=== PATIENT | male | born 2000 | race Caucasian/White ===

== ENCOUNTER 2020-12-18 18:20 | Emergency (ER) | payer SELFPAY ==
[2020-12-18] MEDS ORDERED: NA CHLORIDE 0.9% 1,000 ML ONE ×2 (18:51→18:53)
[2020-12-18] MEDS ORDERED: MULTIVITAMINS 10 ML VIAL (INJ) IV ONE (18:51)
[2020-12-18] MEDS ORDERED: ONDANSETRON 4 MG/2 ML VIAL ONE (18:51)
[2020-12-18 18:52] LABS: Absolute Lymphocytes (CBC) 2.5 K/uL (0.7-4.9); Basophils % 1.1 % (0-1.3); Hematocrit 45.1 % (39.6-49.0); Lymphocytes % 32.6 % (15.3-44.8); MPV 7.7 fL (7.6-11.3); RBC Red Blood Cell Count 4.88 M/uL (4.33-5.43)
[2020-12-18 18:55] LABS: Protime INR 0.91
[2020-12-18 19:14] LABS: ALT/SGPT 23 U/L (12-78); AST/SGOT 22 U/L (15-37); Albumin 4.3 g/dL (3.4-5.0); Alkaline Phosphatase 108 U/L (45-117); BUN Blood Urea Nitrogen 11 mg/dL (7-18); Bicarbonate 24 mmol/L (21-32); Bilirubin Direct 0.1 mg/dL (0-0.2); Bilirubin Total 0.5 mg/dL (0.2-1.0); Glucose Level 90 mg/dL (74-106); Potassium 3.6 mmol/L (3.5-5.1); Protein, Total 7.6 g/dL (6.4-8.2); Sodium Level 145 mmol/L (136-145)
[2020-12-18 19:59] LABS: Urine Blood Negative (Negative); Urine Glucose Negative (Negative); Urine Protein Negative (Negative)
[2020-12-18 20:15] LABS: Barbiturates NEGATIVE (NEGATIVE); Benzodiazepines NEGATIVE (NEGATIVE); Cocaine NEGATIVE (NEGATIVE); METHAMPHETAM NEGATIVE (NEGATIVE); Methadone NEGATIVE (NEGATIVE); Opiates NEGATIVE (NEGATIVE); Phencyclidine NEGATIVE (NEGATIVE); THC Cannibis NEGATIVE (NEGATIVE)
--- NOTE | 2020-12-18 21:33 | ER ---
Nurse's Notes [facility] Name: Surendra Deng Age: 20 yrs Sex: Male : 2000 Arrival Date: 12/18/2020 Time: 18:23 Bed 12 Private MD: Diagnosis: Alcohol abuse with intoxication Presentation: 12/18 18:24 Chief complaint: EMS states: Toned out for possible heat stroke, on scene pt was hb combative, confused, on knees rocking back and forth, reported drinking vodka + redbull and beer all day. Vomiting upon arrival. Coronavirus screen: At this time, the client does not indicate any symptoms associated with coronavirus-19. Ebola Screen: No symptoms or risks identified at this time. Initial Sepsis Screen: Does the patient meet any 2 criteria? No. Patient's initial sepsis screen is negative. Does the patient have a suspected source of infection? No. Patient's initial sepsis screen is negative. Risk Assessment: Do you want to hurt yourself or someone else? Patient reports no desire to harm self or others. Onset of symptoms was December 18, 2020. 18:24 Method Of Arrival: EMS: [facility] 18:24 Acuity: JHONY 2 hb Triage Assessment: 18:26 General: Appears ill, Behavior is restless, uncooperative. Pain: Denies pain. EENT: No hb signs and/or symptoms were reported regarding the EENT system. Neuro: Level of Consciousness is confused, lethargic, Oriented to person. Cardiovascular: Patient's skin is warm and dry. Respiratory: Respiratory effort is even, unlabored, Respiratory pattern is regular, symmetrical. GI: Pt is actively vomiting undigested food. : No signs and/or symptoms were reported regarding the genitourinary system. Derm: Skin is pink, warm \T\ dry. Musculoskeletal: No signs and/or symptoms reported regarding the musculoskeletal system. Historical: - Allergies: 18:26 No Known Allergies; hb - Home Meds: 18:26 None [Active]; hb - PMHx: 18:26 None; hb - PSHx: 18:26 None; hb - Immunization history:: Adult Immunizations up to date. - Social history:: Smoking status: unknown. Screenin:27 Abuse screen: Denies threats or abuse. Denies injuries from another. Nutritional hb screening: No deficits noted. Tuberculosis screening: No symptoms or risk factors identified. Fall Risk None identified. Assessment: 18:27 General: see triage . hb 18:30 Reassessment: assisted patient to bedside commode. BM x1 and voided x1. Pt now in exam ss room with side rails up x2. 19:10 Reassessment: Pt is awake and alert and oriented x4, smells of ETOH, respirations are jb4 even and unlabored with no s/s of pain or distress noted. 20:30 Reassessment: Patient appears in no apparent distress at this time. Patient and/or jb4 family updated on plan of care and expected duration. Pain level reassessed. Patient is alert, oriented x 3, equal unlabored respirations, skin warm/dry/pink. 21:02 Reassessment: Patient appears in no apparent distress at this time. Patient and/or jb4 family updated on plan of care and expected duration. Pain level reassessed. Patient is alert, oriented x 3, equal unlabored respirations, skin warm/dry/pink. Pt is able to ambulate with a steady gait. Moved to bed 12 to finish IV infusion and wait for discharge. 21:59 Reassessment: Patient appears in no apparent distress at this time. Patient and/or jb4 family updated on plan of care and expected duration. Pain level reassessed. Patient is alert, oriented x 3, equal unlabored respirations, skin warm/dry/pink. Pt d/c'ed home with father, left ED with steady gait. Vital Signs: 18:24 BP 133 / 88; Pulse 92; Resp 16; Temp 97.4; Pulse Ox 98% on R/A; Pain 0/10; hb 19:10 Pulse 95; Resp 16; Pulse Ox 100% on R/A; jb4 20:45 BP 127 / 82; Pulse 83; Resp 16; Pulse Ox 97% on R/A; jb4 21:05 BP 127 / 82; Pulse 88; Resp 16; Pulse Ox 96% on R/A; dh4 ED Course: 18:23 Patient arrived in ED. hb 18:25 Triage completed. hb 18:26 Ashleigh Smalls FNP-C is [facility]. kb 18:26 Moe Win MD is Attending Physician. kb 18:26 Arm band placed on. hb 18:27 Sarahy Keller, RN is Primary Nurse. hb 18:27 Patient has correct armband on for positive identification. Bed in low position. Call hb light in reach. Side rails up X2. 18:43 Inserted saline lock: 20 gauge in right antecubital area, using aseptic technique. hb Blood collected. 21:59 No provider procedures requiring assistance completed. IV discontinued, intact, jb4 bleeding controlled, No redness/swelling at site. Pressure dressing applied. Administered Medications: 18:43 Drug: NS 0.9% 1000 ml Route: IV; Rate: 1000 ml; Site: left antecubital; hb 20:00 Follow up: Response: No adverse reaction; IV Status: Completed infusion; IV Intake: jb4 1000ml 18:43 Drug: Banana Bag - (NS 0.9% 1000 ml, foLIC Acid 1 mg, Thiamine 100 mg, Multivitamin 1 hb amp) Route: IV; Rate: calculated rate; Site: left antecubital; 21:55 Follow up: Response: No adverse reaction; IV Status: Completed infusion; IV Intake: jb4 1000ml 18:43 Drug: Zofran (Ondansetron) 4 mg Route: IVP; Site: left antecubital; hb 19:06 Follow up: Response: No adverse reaction hb Intake: 20:00 IV: 1000ml; Total: 1000ml. jb4 21:55 IV: 1000ml; Total: 2000ml. jb4 Outcome: 21:32 Discharge ordered by . kb 21:59 Discharged to home ambulatory. jb4 21:59 Condition: stable 21:59 Discharge instructions given to patient, Instructed on discharge instructions, follow up and referral plans. Demonstrated understanding of instructions, follow-up care. 22:00 Patient left the ED. jb4 Signatures: Ashleigh Smalls, RETAINING ROOM CUTTER-C DEYANIRA-Natalie Marin RN RN Sarahy Keller, RN RN Brent Francisco RN RN jb Dexter Melton Franny
--- NOTE | 2020-12-18 21:33 | EDPHYS ---
Physician Documentation [facility] Name: Surendra Deng Age: 20 yrs Sex: Male : 2000 Arrival Date: 12/18/2020 Time: 18:23 Bed 12 Private MD: ED Physician Moe Win HPI: 12/19 00:15 This 20 yrs old Male presents to ER via EMS with complaints of ETOH Abuse. kb 00:16 The patient presents to the emergency department The patient presents to the emergency kb department alcohol intoxication. Context: Method: the patient has a confirmed or suspected ingestion, of alcohol, Time: just prior to arrival, Extent: moderate ingestion, [place], and was witnessed by family. Associated signs and symptoms: Pertinent positives: nausea, vomiting, Pertinent negatives: anxiety, apnea, auditory hallucinations, burning of skin, decreased level of consciousness, depression, diaphoresis, diarrhea, dizziness, incontinence, loss of consciousness, palpitations, shortness of breath, tearfulness, visual hallucinations. Severity of symptoms: At their worst the symptoms were moderate in the emergency department the symptoms are unchanged. The patient has not experienced similar symptoms in the past. The patient has not recently seen a physician. Pt [place] the [place] and began vomiting. EMS was called and pt brought in. . Historical: - Allergies: 12/18 18:26 No Known Allergies; hb - Home Meds: 18:26 None [Active]; hb - PMHx: 18:26 None; hb - PSHx: 18:26 None; hb - Immunization history:: Adult Immunizations up to date. - Social history:: Smoking status: unknown. ROS: 18:59 Constitutional: Negative for fever, chills, and weight loss. kb 18:59 Abdomen/GI: Positive for nausea and vomiting, Negative for abdominal pain. 18:59 All other systems are negative. Exam: 19:00 Constitutional: This is a well developed, well nourished patient who is awake, alert, kb and in no acute distress. Head/Face: Normocephalic, atraumatic. Eyes: Pupils equal round and reactive to light, extra-ocular motions intact. Lids and lashes normal. Conjunctiva and sclera are non-icteric and not injected. Cornea within normal limits. Periorbital areas with no swelling, redness, or edema. ENT: Moist Mucous membranes Respiratory: Respirations even and unlabored. No increased work of breathing, no retractions or nasal flaring. Abdomen/GI: Soft, non-tender. No distention Skin: Warm, dry with normal turgor. Normal color. MS/ Extremity: Pulses equal, no cyanosis. Neurovascular intact. Full, normal range of motion. 19:08 Constitutional: The patient appears smells of alcohol, ETOH, obviously intoxicated kb 19:36 ECG was reviewed by the Attending Physician. kb Vital Signs: 18:24 BP 133 / 88; Pulse 92; Resp 16; Temp 97.4; Pulse Ox 98% on R/A; Pain 0/10; hb 19:10 Pulse 95; Resp 16; Pulse Ox 100% on R/A; jb4 20:45 BP 127 / 82; Pulse 83; Resp 16; Pulse Ox 97% on R/A; jb4 21:05 BP 127 / 82; Pulse 88; Resp 16; Pulse Ox 96% on R/A; dh4 MDM: 18:26 Patient medically screened. kb 18:59 Data reviewed: vital signs, nurses notes. Data interpreted: Pulse oximetry: on room air kb is 98 %. Interpretation: normal. 21:31 Counseling: I had a detailed discussion with the patient and/or guardian regarding: the kb historical points, exam findings, and any diagnostic results supporting the discharge/admit diagnosis, lab results, the need for outpatient follow up, a family practitioner, to return to the emergency department if symptoms worsen or persist or if there are any questions or concerns that arise at home. ED course: Ambulates with steady gait, awake, alert and oriented x3. Responsible adult coming to pick pt up. . 12/18 18:27 Order name: Acetaminophen; Complete Time: 19:35 kb 12/18 18:27 Order name: Basic Metabolic Panel; Complete Time: 19:35 kb 12/18 18:27 Order name: CBC with Diff; Complete Time: 18:57 kb 12/18 18:27 Order name: ETOH Level; Complete Time: 19:35 kb 12/18 18:27 Order name: Hepatic Function; Complete Time: 19:35 kb 12/18 18:27 Order name: PT-INR; Complete Time: 18:57 kb 12/18 18:27 Order name: Ptt, Activated; Complete Time: 18:57 kb 12/18 18:27 Order name: Salicylate; Complete Time: 19:35 kb 12/18 18:27 Order name: Urine Drug Screen; Complete Time: 20:31 kb 12/18 18:27 Order name: EKG; Complete Time: 18:28 kb 12/18 19:59 Order name: Urine Dipstick-Ancillary; Complete Time: 20:00 EDMS 12/18 18:27 Order name: EKG - Nurse/Tech; Complete Time: 19:49 kb 12/18 18:27 Order name: IV Saline Lock; Complete Time: 18:43 kb 12/18 18:27 Order name: Labs collected and sent; Complete Time: 18:43 kb 12/18 18:27 Order name: Suicide Screening ([place]); Complete Time: 18:43 kb 12/18 18:27 Order name: Urine Dipstick-Ancillary (obtain specimen); Complete Time: 18:43 kb EC:36 Rate is 96 beats/min. Rhythm is regular. QRS [place] is Normal. [place] interval is normal at kb 184 msec. QRS interval is normal at 86 msec. QT interval is normal at 334 msec. Administered Medications: 18:43 Drug: NS 0.9% 1000 ml Route: IV; Rate: 1000 ml; Site: left antecubital; hb 20:00 Follow up: Response: No adverse reaction; IV Status: Completed infusion; IV Intake: jb4 1000ml 18:43 Drug: Banana Bag - (NS 0.9% 1000 ml, foLIC Acid 1 mg, Thiamine 100 mg, Multivitamin 1 hb amp) Route: IV; Rate: calculated rate; Site: left antecubital; 21:55 Follow up: Response: No adverse reaction; IV Status: Completed infusion; IV Intake: jb4 1000ml 18:43 Drug: Zofran (Ondansetron) 4 mg Route: IVP; Site: left antecubital; hb 19:06 Follow up: Response: No adverse reaction hb Disposition: 12/19 06:58 Co-signature as Attending Physician, Moe Win MD I agree with the assessment and rn plan of care. Disposition Summary: 12/18/20 21:32 Discharge Ordered Location: Home kb Condition: Stable kb Diagnosis - Alcohol abuse with intoxication kb Followup: kb - With: Emergency Department - When: As needed - Reason: Worsening of condition Followup: kb - With: Private Physician - When: 2 - 3 days - Reason: Recheck today's complaints, Continuance of care, Re-evaluation by your physician Discharge Instructions: - Discharge Summary Sheet kb - Alcohol Intoxication, [id number] kb Forms: - Medication Reconciliation Form kb - Thank You Letter kb - Antibiotic Education kb - Prescription Opioid Use kb Signatures: Dispatcher [employer] EDAshleigh Gonzalez, DEYANIRA-C [employer]-Moe Sweeney MD MD rn Baxter, Heather, RN RN hb Bryson, James RN jb4
[2020-12-18 22:11] VITALS: TEMP 97.4
[2020-12-18 22:13] VITALS: BP 127/82
[2020-12-18 22:15] VITALS: O2SAT 96
== END 2020-12-18 22:00 | disposition home or self-care (01) ==
LOC: ER 18:20
DX: F10.129 Alcohol abuse with intoxication, unspecified (principal)
CPT/HCPCS: 36415; 80048; 80076; 80307; 80320; 80329; 81003; 85025; 85610; 85730; 93005; 96365; 96366; 96375; 99284; J2405; J7030